=== PATIENT | male | born 1985 | race American Indian/Alaskan Native ===

== ENCOUNTER 2017-01-23 12:05 | Emergency (ER) | payer MEDICAID ==
[2017-01-23 12:12] VITALS: BP 123/78; PULSE 100; RESP 18; TEMP 98.4; O2SAT 99
[2017-01-23] MEDS ORDERED: cefTRIAXone (Rocephin) 250 mg Inj IM STA (12:50)
[2017-01-23] MEDS ORDERED: cefTRIAXone (Rocephin) 250 mg Inj ONE (12:54)
[2017-01-23] MEDS ORDERED: Sterile Water 10 ML IV ONE (12:54)
--- NOTE | 2017-01-23 13:19 | ED PDOC ---
HPI: Abdomen Time Seen by Provider: 01/23/17 12:25 Chief Complaint (Nursing): Abdominal Pain Chief Complaint (Provider): Abdominal Pain History Per: Patient History/Exam Limitations: no limitations Onset/Duration Of Symptoms: Days Current Symptoms Are (Timing): Still Present Additional Complaint(s): 31 y/o male who presents to the emergency department with a complaint of a constant abdominal pain x13 years. Patient states his symptoms started with abdomen pain and then 1 week later penile discharge began. Reports his girlfriend at the time was diagnosed with chlamydia. Patient reports the LLQ feels "inflamed". Has had multiple visits here for the same complaint but was always told nothing was wrong. Requests to be treated for STD. Past Medical History Reviewed: Historical Data, Nursing Documentation, Vital Signs Vital Signs: Last Vital Signs Temp 98.4 F 01/23/17 12:09 Pulse 100 H 01/23/17 12:09 Resp 18 01/23/17 12:09 BP 123/78 01/23/17 12:09 Pulse Ox 99 01/23/17 13:28 - Medical History PMH: No Chronic Diseases - Surgical History Surgical History: No Surg Hx - Family History Family History: States: Unknown Family Hx - Allergies Allergies/Adverse Reactions: Allergies Allergy/AdvReac Type Severity Reaction Status Date / Time No Known Allergies Allergy Verified 01/18/16 18:13 Review of Systems ROS Statement: Except As Marked, All Systems Reviewed And Found Negative Gastrointestinal: Positive for: Abdominal Pain Physical Exam - Reviewed Nursing Documentation Reviewed: Yes Vital Signs Reviewed: Yes - Physical Exam Appears: Positive for: Non-toxic, No Acute Distress Head Exam: Positive for: ATRAUMATIC, NORMOCEPHALIC Skin: Positive for: Normal Color, Warm, Dry Eye Exam: Positive for: Normal appearance. Negative for: Conjunctival injection Neck: Positive for: Normal, Supple Cardiovascular/Chest: Positive for: Regular Rate, Rhythm. Negative for: Murmur Respiratory: Positive for: Normal Breath Sounds. Negative for: Accessory Muscle Use, Respiratory Distress Gastrointestinal/Abdominal: Positive for: Normal Exam, Soft. Negative for: Tenderness Extremity: Positive for: Normal ROM. Negative for: Swelling Neurologic/Psych: Positive for: Alert, Oriented - ECG O2 Sat by Pulse Oximetry: 99 (RA) Pulse Ox Interpretation: Normal Medical Decision Making Medical Decision Making: Time: 12:25 Initial impression: Abdominal Pain Initial plan: --Chlamydia/ GC RNA, TMA --Rocephin 250 mg IM --Zithromax 1,000 mg PO --Revaluation Scribe Attestation: Documented by Michelle Viveros, acting as a scribe for Su Choe PA-C. Provider Scribe Attestation: All medical record entries made by the Scribe were at my direction and personally dictated by me. I have reviewed the chart and agree that the record accurately reflects my personal performance of the history, physical exam, medical decision making, and the department course for this patient. I have also personally directed, reviewed, and agree with the discharge instructions and disposition. Disposition - Clinical Impression Clinical Impression: Chronic abdominal pain - Disposition Referrals: [facility] [Outside] Disposition: Routine/Home Disposition Time: 13:06 Condition: STABLE Additional Instructions: [phone] January 30, 2017 Ask daria Blue Instructions: Abdominal Pain (ED)
== END 2017-01-23 13:30 | disposition home or self-care (01) ==
LOC: H.ER 12:05
DX: R10.9 Unspecified abdominal pain (principal)
CPT/HCPCS: 87491; 87591; 96372; 99282; J0696